=== PATIENT | female | born 1935 | race Caucasian/White ===

== ENCOUNTER 2016-05-06 20:24 | Emergency (ER) | payer MEDICARE, OTHER ==
[~2016-05-06] VITALS: Ht 170.2 cm; Wt 90.5 kg
[~2016-05-06 20:24] MED LIST: ALBU6.7H INH; AMBI10TA; ATEN1TAB75 PO; CALTTAB5; DARV PO; LEVO.1; LORT5TAB PO; MEDR4PAK3 PO; MOXI400T4 PO; PIRO-1 PO; RANI300T PO; TRAM50 PO; [UNRECOGNIZED DRUG - OTHER]
[2016-05-06 20:26] VITALS: BP 139/66; PULSE 61; RESP 20; TEMP 98; O2SAT 96
== END 2016-05-06 22:00 | disposition left against medical advice (07) ==
LOC: NED 20:24
DX: Z53.21 Procedure and treatment not carried out due to patient leaving prior to being seen by health care provider (principal)
CPT/HCPCS: 99281

== ENCOUNTER 2016-05-13 09:13 | Inpatient (IN) | payer MEDICARE ==
[~2016-05-13] VITALS: Ht 167.6 cm; Wt 92.8 kg
[2016-05-13 10:02] VITALS: BP_SYST 144; BP_DIAS 62; BP_DIAS 67; PULSE 49; TEMP 98.1; TEMP 98.4; O2SAT 97
[2016-05-13] MEDS: SODIUM CHLORIDE 0.9% FLUSH 5 ML FLUSH IVF PRN ×2 (10:40→12:12)
[2016-05-13 10:42] LABS: AUTOMATED NEUTROPHIL # 12.8 TH/MM3 (1.8-7.7); BASOPHIL # 0.1 TH/MM3 (0-0.2); BASOPHIL % 0.6 % (0.0-2.0); EOSINOPHIL % 0.2 % (0.0-4.0); HEMATOCRIT 37.1 % (35.0-46.0); LYMPH % 7.2 % (9.0-44.0); LYMPHOCYTE # 1.1 TH/MM3 (1.0-4.8); MEAN CORPUSCULAR HEMOGLOBIN 29.8 PG (27.0-34.0); MEAN CORPUSCULAR HGB CONC 33.9 % (32.0-36.0); PLATELET COUNT 302 TH/MM3 (150-450); RED BLOOD COUNT 4.22 MIL/MM3 (4.00-5.30); WHITE BLOOD COUNT 15.1 TH/MM3 (4.0-11.0)
[2016-05-13 10:45] LABS: HEMO FLAGS AUTO DIFF
[2016-05-13 10:50] LABS: APTT (PATIENT) 25.1 SEC (24.3-30.1)
--- NOTE | 2016-05-13 10:57 | PD ---
HPI Chief Complaint: General Weakness Time Seen by Provider: 09:59 Travel History International Travel<30 days: No Contact w/Intl Traveler<30days: No Traveled to known affect area: No History of Present Illness HPI 81yo F presents to the ED with c/o right shoulder pain s/p fall yesterday afternoon. Pt also states she felt dizzy and fell 2 more times today but did not hit her head. Denies any fever, chest pain, sob, n/v, abdominal pain, focal weakness or numbness. PFSH Past Medical History Arthritis: Yes Anxiety: Yes High Cholesterol: Yes GERD: Yes Hypertension: Yes Musculoskeletal: Yes (CORTISONE TO RIGHT HEEL, 20YEARS FOR HEEL SPUR) Thyroid Disease: Yes ?: Not Menopausal: Yes Past Surgical History Appendectomy: Yes Cholecystectomy: Yes Genitourinary Surgery: Yes (BLADDER SUSPENSION SURGERY) Gynecologic Surgery: Yes (HYSTERECTOMY, AND BREAST REDUCTION) Hysterectomy: Yes Joint Replacement: Yes (BILATERAL KNEE) Other Surgery: Yes (BREAST REDUCTION) Social History Alcohol Use: No Tobacco Use: No Substance Use: No Allergies-Medications (Allergen,Severity, Reaction): Coded Allergies: Penicillin (Verified Allergy, Severe, RASH AND SOB, 05/06/16) Reported Meds & Prescriptions Reported Meds & Active Scripts Active Reported Zolpidem (Zolpidem Tartrate) 1.75 Mg Sub 1.75 Mg SL HS PRN Caltrate 600 (Calcium Carbonate) 1,500 Mg Tab 1 Tab PO DAILY Furosemide 20 Mg Tab 20 Mg PO DAILY Amlodipine (Amlodipine Besylate) 2.5 Mg Tab 2.5 Mg PO DAILY Synthroid (Levothyroxine Sodium) 100 Mcg Tab 100 Mcg PO DAILY Atenolol 100 Mg Tab 100 Mg PO DAILY Review of Systems Except as stated in HPI: all other systems reviewed are Neg Physical Exam Narrative GENERAL: 81yo F not in distress. SKIN: Warm and dry. HEAD: Atraumatic. Normocephalic. EYES: Pupils equal and round. No scleral icterus. No injection or drainage. NECK: Trachea midline. No JVD. CARDIOVASCULAR: Regular rate and rhythm. No murmur appreciated. RESPIRATORY: No accessory muscle use. Clear to auscultation. Breath sounds equal bilaterally. GASTROINTESTINAL: Abdomen soft, non-tender, nondistended. Hepatic and splenic margins not palpable. MUSCULOSKELETAL: RUE: +TTP proximal humerus. Deltoid sensation intact. Radial pulse 2+. NEUROLOGICAL: Awake and alert. No obvious cranial nerve deficits. Motor grossly within normal limits. Normal speech. PSYCHIATRIC: Appropriate mood and affect; insight and judgment normal. Data Data Last Documented VS Vital Signs Date Time Temp Pulse Resp B/P Pulse Ox O2 Delivery O2 Flow Rate FiO2 05/13/16 11:36 100 Nasal Cannula 2 05/13/16 10:02 98.4 49 144/62 05/13/16 10:02 17 Orders Electrocardiogram (05/13/16 10:24) Basic Metabolic Panel (Bmp) (05/13/16 10:24) Complete Blood Count With Diff (05/13/16 10:24) Magnesium (Mg) (05/13/16 10:24) Ckmb (Isoenzyme) Profile (05/13/16 10:24) Troponin I (05/13/16 10:24) Act Partial Throm Time (Ptt) (05/13/16 10:24) Urinalysis - C+S If Indicated (05/13/16 10:24) Chest, Single Ap (05/13/16 10:24) Ecg Monitoring (05/13/16 10:24) Iv Access Insert/Monitor (05/13/16 10:24) Oximetry (05/13/16 10:24) Sodium Chloride 0.9% Flush (Ns Flush) (05/13/16 10:30) Ct Brain W/O Iv Contrast(Rout) (05/13/16 ) Shoulder, Limited(2vws) (05/13/16 ) Elbow, Limited (Ap&Lat) (05/13/16 ) CKMB (05/13/16 10:30) CKMB% (05/13/16 10:30) Cath For Specimen (05/13/16 11:35) Sodium Chlor 0.9% 1000 Ml Inj (Ns 1000 M (05/13/16 11:45) Diet Npo (05/13/16 Lunch) Vital Signs (Adult) VIANCA.Q4H (05/13/16 12:15) Sodium Chlor 0.9% 1000 Ml Inj (Ns 1000 M (05/13/16 13:00) Ondansetron Inj (Zofran Inj) (05/13/16 12:15) Consult Orthopedic (05/13/16 ) Complete Blood Count With Diff (05/14/16 06:00) Basic Metabolic Panel (Bmp) (05/14/16 06:00) Admit Order (Ed Use Only) (05/13/16 12:18) Labs Laboratory Tests Test 05/13/16 05/13/16 10:30 11:55 White Blood Count 15.1 TH/MM3 Red Blood Count 4.22 MIL/MM3 Hemoglobin 12.6 GM/DL Hematocrit 37.1 % Mean Corpuscular Volume 88.0 FL Mean Corpuscular Hemoglobin 29.8 PG Mean Corpuscular Hemoglobin 33.9 % Concent Red Cell Distribution Width 14.0 % Platelet Count 302 TH/MM3 Mean Platelet Volume 7.4 FL Neutrophils (%) (Auto) 85.0 % Lymphocytes (%) (Auto) 7.2 % Monocytes (%) (Auto) 7.0 % Eosinophils (%) (Auto) 0.2 % Basophils (%) (Auto) 0.6 % Neutrophils # (Auto) 12.8 TH/MM3 Lymphocytes # (Auto) 1.1 TH/MM3 Monocytes # (Auto) 1.0 TH/MM3 Eosinophils # (Auto) 0.0 TH/MM3 Basophils # (Auto) 0.1 TH/MM3 CBC Comment AUTO DIFF Differential Comment AUTO DIFF CONFIRMED Platelet Estimate NORMAL Platelet Morphology Comment NORMAL Red Cell Morphology Comment NORMAL Activated Partial 25.1 SEC Thromboplast Time Sodium Level 133 MEQ/L Potassium Level 4.2 MEQ/L Chloride Level 98 MEQ/L Carbon Dioxide Level 26.5 MEQ/L Anion Gap 9 MEQ/L Blood Urea Nitrogen 40 MG/DL Creatinine 2.61 MG/DL Estimat Glomerular Filtration 18 ML/MIN Rate Random Glucose 103 MG/DL Calcium Level 9.0 MG/DL Magnesium Level 2.1 MG/DL Total Creatine Kinase 156 U/L Creatine Kinase MB 1.9 NG/ML Troponin I LESS THAN 0.02 NG/ML Urine Color YELLOW Urine Turbidity CLEAR Urine pH 6.0 Urine Specific [place] 1.018 Urine Protein NEG mg/dL Urine Glucose (UA) NEG mg/dL Urine Ketones NEG mg/dL Urine Occult Blood NEG Urine Nitrite NEG Urine Bilirubin NEG Urine Urobilinogen 2.0 MG/DL Urine Leukocyte Esterase NEG Urine RBC 2 /hpf Urine WBC 1 /hpf Urine Squamous Epithelial 1 /hpf Cells Microscopic Urinalysis Comment CULT NOT INDICATED MDM Medical Decision Making Medical Screen Exam Complete: Yes Emergency Medical Condition: Yes Interpretation(s) EKG: Sinus bradycardia at 45bpm. Normal axis. TWI V3. No ST segment elevation or depression. QTc 451ms. Differential Diagnosis Dehydration vs. UTI vs. Proximal humerus fracture vs. ICH vs. posterior stroke Narrative Course 81yo F with mechanical fall yesterday here with right shoulder pain. Pt also has been feeling dizzy after and fell two more times today. Has been feeling weak. Labs reviewed, leukocytosis at 15.1. H/H stable at 12.6/37.1. BUN/ creatinine elevated at 40/2.61. No prior to compare. Pt likely with PRABHJOT secondary to dehydration. Troponin negative. UA pending. CT brain showed no acute infarct. Discussed with Dr. Franklin and accepted to his service. Xray right shoulder showed comminuted fracture through anatomic neck of proximal right humerus. Xray right elbow negative. Pt placed in sling. Discussed with orthopedic surgeon Dr. Ruggiero and he is aware of patient and will see her today or tomorrow. UA negative. Diagnosis Primary Impression: Acute kidney injury Additional Impression: Right humeral fracture Qualified Code: S42.211A - Closed displaced fracture of surgical neck of right humerus, unspecified fracture morphology, initial encounter Admitting Information Admitting Physician Requests: Admit Alysia Freeman DO May 13, 2016 10:57
[2016-05-13 11:00] LABS: ANION GAP 9 MEQ/L (5-15); BICARBONATE 26.5 MEQ/L (21.0-32.0); BLOOD UREA NITROGEN 40 MG/DL (7-18); CHLORIDE 98 MEQ/L (98-107); GLOMERULAR FILTRATION RATE 18 ML/MIN (>89); MAGNESIUM 2.1 MG/DL (1.5-2.5); POTASSIUM 4.2 MEQ/L (3.5-5.1); SODIUM (NA) 133 MEQ/L (136-145)
[2016-05-13 11:03] LABS: CREATINE KINASE 156 U/L (26-192)
[2016-05-13 11:12] LABS: PLATELET ESTIMATE SMEAR NORMAL (NORMAL); PLATELET MORPHOLOGY NORMAL (NORMAL); SCAN/DIFF AUTO DIFF CONFIRMED
[2016-05-13 11:16] LABS: CKMB 1.9 NG/ML (0.5-3.6)
--- NOTE | 2016-05-13 11:32 | RADRPT ---
EXAM DATE/TIME: 05/13/2016 11:00 [facility] COMPARISON: No previous studies available for comparison. INDICATIONS: Syncope, fall. RADIATION DOSE: 37.12 CTDIvol (mGy) MEDICAL HISTORY: Hypertension. Hypothyroidism. SURGICAL HISTORY: Appendectomy. Cholecystectomy. Hysterectomy. ENCOUNTER: Initial ACUITY: 1 day PAIN SCALE: 3/10 LOCATION: Cranial TECHNIQUE: Multiple contiguous axial images were obtained of the head. Using automated exposure control and adj ustment of the mA and/or kV according to patient size, radiation dose was kept as low as reasonably a chievable to obtain optimal diagnostic quality images. FINDINGS: The ventricles, sulci and cisterns are normal size, shape and position for the patient's age. S cattered old lacunar infarcts are noted within the bilateral basal ganglia. There is ischemic change within the left external capsule. There is no acute infarct, acute hemorrhage, mass effect or extra axial fluid collections. Air fluid levels are noted within the maxillary sinuses and sphenoid sinuse s bilaterally consistent with acute sinusitis. Mucosal thickening is also noted involving ethmoid ai r cells bilaterally. CONCLUSION: 1. No acute infarct, acute hemorrhage, mass effect or extraaxial fluid collections. 2. 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 3. Ischemic changes within the left external capsule. 4. Air fluids within the maxillary sinuses and sphenoid sinuses consistent with acute sinusitis with mucosal thickening of the ethmoid air cells bilaterally also. Alex Hahn MD on May 13, 2016 at 11:07 Board Certified Radiologist. This report was verified electronically.
[2016-05-13 11:36] VITALS: O2SAT 100
[2016-05-13] MEDS ORDERED: SODIUM CHLOR 0.9% 1000 ML INJ 1,000 ML IV ONE (11:45)
--- NOTE | 2016-05-13 11:47 | RADRPT ---
EXAM DATE/TIME: 05/13/2016 11:35 [facility] COMPARISON: No previous studies available for comparison. INDICATIONS : Shortness of breath. MEDICAL HISTORY : None. SURGICAL HISTORY : None. ENCOUNTER: Initial ACUITY: 1 day PAIN SCORE: 0/10 LOCATION: Bilateral chest FINDINGS: A single view of the chest demonstrates the lungs to be symmetrically aerated without evidence of mas s, infiltrate or effusion. The cardiomediastinal contours are unremarkable. There appears to be a fr acture through the proximal right humerus which is incompletely evaluated on this study. Degenerative spurring of the dorsal spine. CONCLUSION: 1. No acute infiltrate. 2. Probable fracture of the proximal right humerus-age indeterminate. Bao Lopez MD on May 13, 2016 at 11:44 Board Certified Radiologist. This report was verified electronically.
--- NOTE | 2016-05-13 11:49 | RADRPT ---
EXAM DATE/TIME: 05/13/2016 11:38 [facility] COMPARISON: No previous studies available for comparison. INDICATIONS : Right elbow pain, fall. MEDICAL HISTORY : None. SURGICAL HISTORY : None. ENCOUNTER: Initial ACUITY: 1 day PAIN SCORE: 4/10 LOCATION: Right elbow FINDINGS: Two view examination of the right elbow demonstrates no soft tissue swelling, joint effusion, fractur e or dislocation. Bony mineralization is normal. CONCLUSION: No fracture identified on the 2 view series provided. Bao Lopez MD on May 13, 2016 at 11:46 Board Certified Radiologist. This report was verified electronically.
--- NOTE | 2016-05-13 11:51 | RADRPT ---
EXAM DATE/TIME: 05/13/2016 11:24 [facility] COMPARISON: No previous studies available for comparison. INDICATIONS : Right shoulder pain, fall. MEDICAL HISTORY : None. SURGICAL HISTORY : None. ENCOUNTER: Initial ACUITY: 1 day PAIN SCORE: 10/10 LOCATION: Right proximal humerus FINDINGS: Two view examination of the right shoulder demonstrates a comminuted fracture through the surgical ne ck of the proximal right humerus with approximately 8 -12 mm of anteromedial displacement of the dist al fragment. CONCLUSION: Comminuted fracture through the anatomic neck of the proximal right humerus. Bao Lopez MD on May 13, 2016 at 11:48 Board Certified Radiologist. This report was verified electronically.
[2016-05-13] MEDS ORDERED: CALTTAB5 PO (12:20)
[2016-05-13] MEDS ORDERED: LEVO.1 PO (12:20)
[2016-05-13] MEDS ORDERED: METO25TA3 PO (12:20)
[2016-05-13] MEDS ORDERED: ATEN100T PO (12:20)
[2016-05-13] MEDS ORDERED: FURO20TA PO (12:20)
[2016-05-13] MEDS ORDERED: ZOLP1SUB2 SL (12:20)
[2016-05-13] MEDS ORDERED: AMLO2.5T PO (12:20)
[2016-05-13 12:38] LABS: BLOOD, URINE NEG (NEG); COMMENT (UR) CULT NOT INDICATED; CULTURE IF INDICATED CULT NOT INDICATED; GLUCOSE,URINE NEG (NEG); KETONE, URINE NEG (NEG); NITRITE,URINE NEG (NEG); SQUAMOUS EPITHELIAL CELL URINE 1 /hpf (0-5); URINE COLOR YELLOW (YELLW/STRAW)
[2016-05-13 12:39] VITALS: BP_SYST 134; BP_SYST 84; BP_DIAS 84; PULSE 49; O2SAT 100
--- NOTE | 2016-05-13 12:47 | HHI.HP ---
[facility] Primary Care Physician Non-Staff Admission Diagnosis Right proximal humerus fx, PRABHJOT, dehydration Diagnoses: (1) Right humeral fracture Diagnosis: Principal (2) Fall Diagnosis: Principal (3) Acute kidney injury Diagnosis: Principal Chief Complaint: pain to the right shoulder Travel History International Travel<30 Days: No Contact w/Intl Traveler <30 Da: No Traveled to Known Affected Are: No History of Present Illness patient is a 81 y/o female with history of hypertension who presented to ER with right shoulder pain after a fall last night. she says that while she was on a cruise she started to have flu-like symptoms for which she was given antibiotics and cough medicine. she says that she hasn't been eating or drinking as much recently and she ' feels dehydrated'. she says that she's been dizzy over the past couple of days. she fell three times since yesterday. she denies any chest pain, sob. pain to the right shoulder was moderate in intensity. Review of Systems Constitutional: COMPLAINS OF: Dizziness, DENIES: Fever, Weight loss, Chills, Night Sweats Eyes: DENIES: Blurred vision, Diplopia, Vision loss, Double Vision Ears, nose, mouth, throat: DENIES: Tinnitus, Vertigo, Throat pain, Epistaxis Respiratory: DENIES: Apneas, Cough, Snoring, Wheezing, Hemoptysis, Sputum production, Shortness of breath Cardiovascular: DENIES: Chest pain, Palpitations, Syncope, Dyspnea on Exertion , PND, Lower Extremity Edema, Orthopnea, Claudication Gastrointestinal: DENIES: Abdominal pain, Black stools, Bloody stools, Constipation, Diarrhea, Nausea, Vomiting, Difficulty Swallowing, Anorexia Genitourinary: DENIES: Urinary frequency, Urgency, Hematuria, Dysuria Musculoskeletal: COMPLAINS OF: Joint pain (right shoulder), DENIES: Muscle aches, Stiffness, Joint Swelling Integumentary: DENIES: Rash Neurologic: DENIES: Abnormal gait, Headache, Localized weakness, Paresthesias, Seizures, Speech Problems, Tremor, Poor Balance Psychiatric: DENIES: Anxiety, Confusion, Mood changes, Depression, Hallucinations, Agitation, Suicidal Ideation, Homicidal Ideation, Delusions Past Family Social History Past Medical History hypertension Past Surgical History knee replacement Reported Medications Medrol Dosepak (Methylprednisolone) 4 Mg Tom 4 Mg PO DIRECTED TAKE DIRECTED Avelox (Moxifloxacin HCl) 400 Mg Tab 400 Mg PO DAILY Proventil Hfa (Albuterol Sulfate) 6.7 Gm Aero 2 Puff INH Q4 Lortab 5/500 (Acetaminophen/Hydrocodone Bitart) 5 Mg/500 Mg Tab 1 Tab PO Q4HPRN FOR PAIN Ultram (Tramadol HCl) 50 Mg Tab 1 Tab PO Q6HPRN FOR PAIN Reported Darvocet-N 100 (Propoxyphene Napsylate/Acetam) Tab 1 Tab PO Q6HPRN FOR PAIN Zantac (Ranitidine HCl) 300 Mg Tab 300 Mg PO HS Feldene (Piroxicam) 20 Mg Cap 20 Mg PO DAILY Tenormin (Atenolol) 100 Mg Tab 100 Mg PO DAILY Caltrate 600 (Calcium Carbonate) Tab 600 Mg DAILY Ambien (Zolpidem Tartrate) 10 Mg Tab 10 Mg HS Synthroid (Levothyroxine Sodium) 100 Mcg Tab 100 DAILY Allergies: Coded Allergies: Penicillin (Verified Allergy, Severe, RASH AND SOB, 05/06/16) Active Ordered Medications Current Medications IV Flush 2 ml 2 ml UNSCH PRN IVF FLUSH AFTER USING IV ACCESS Last administered on 05/13/16 12:12; Start 05/13/16 at 10:30 Sodium Chloride 1,000 ml @ 999 mls/hr BOLUS ONCE IV Last administered on 12:11; Start 05/13/16 at 11:45; Stop 05/13/16 at 12:45 Sodium Chloride (NS 1000 ml Inj) 1,000 ml @ 75 mls/hr [id number] IV ; Start at 13:00 Ondansetron HCl (Zofran Inj) 4 mg Q8H PRN IV PUSH NAUSEA; Start 05/13/16 at 12: 15 Family History not relevant to this admission. Social History no smoking or drinking. Physical Exam Vital Signs Vital Signs Date Time Temp Pulse Resp B/P Pulse Ox O2 Delivery O2 Flow Rate FiO2 05/13/16 11:36 100 Nasal Cannula 2 05/13/16 10:02 98.4 49 144/62 97 Nasal Cannula 2 05/13/16 10:02 17 95 Nasal Cannula 2 05/13/16 10:02 98.1 49 144/67 Physical Exam GENERAL: This is a well-nourished, well-developed patient, in no apparent distress. SKIN: No rashes, ecchymoses or lesions. Cool and dry. HEAD: oral mucosa looks dry EYES: Pupils equal round and reactive. Extraocular motions intact. No scleral icterus. No injection or drainage. ENT: Nose without bleeding, purulent drainage or septal hematoma. Throat without erythema, tonsillar hypertrophy or exudate. Uvula midline. Airway patent. NECK: Trachea midline. No JVD or lymphadenopathy. Supple, nontender, no meningeal signs. CARDIOVASCULAR: Regular rate and rhythm without murmurs, gallops, or rubs. RESPIRATORY: Clear to auscultation. Breath sounds equal bilaterally. No wheezes , rales, or rhonchi. GASTROINTESTINAL: Abdomen soft, non-tender, nondistended. No hepato-splenomegaly , or palpable masses. No guarding. MUSCULOSKELETAL:right arm is swollen and tender NEUROLOGICAL: Awake and alert. Cranial nerves II through XII intact. Motor and sensory grossly within normal limits. Five out of 5 muscle strength in all muscle groups. Normal speech. Laboratory Laboratory Tests Test 05/13/16 10:30 White Blood Count 15.1 Red Blood Count 4.22 Hemoglobin 12.6 Hematocrit 37.1 Mean Corpuscular Volume 88.0 Mean Corpuscular Hemoglobin 29.8 Mean Corpuscular Hemoglobin 33.9 Concent Red Cell Distribution Width 14.0 Platelet Count 302 Mean Platelet Volume 7.4 Neutrophils (%) (Auto) 85.0 Lymphocytes (%) (Auto) 7.2 Monocytes (%) (Auto) 7.0 Eosinophils (%) (Auto) 0.2 Basophils (%) (Auto) 0.6 Neutrophils # (Auto) 12.8 Lymphocytes # (Auto) 1.1 Monocytes # (Auto) 1.0 Eosinophils # (Auto) 0.0 Basophils # (Auto) 0.1 CBC Comment AUTO DIFF Differential Comment AUTO DIFF CONFIRMED Platelet Estimate NORMAL Platelet Morphology Comment NORMAL Red Cell Morphology Comment NORMAL Activated Partial 25.1 Thromboplast Time Sodium Level 133 Potassium Level 4.2 Chloride Level 98 Carbon Dioxide Level 26.5 Anion Gap 9 Blood Urea Nitrogen 40 Creatinine 2.61 Estimat Glomerular Filtration 18 Rate Random Glucose 103 Calcium Level 9.0 Magnesium Level 2.1 Total Creatine Kinase 156 Creatine Kinase MB 1.9 Troponin I LESS THAN 0.02 Result Diagram: 05/13/16 1030 05/13/16 1030 Imaging Last Impressions Chest X-Ray 05/13/16 1024 Signed Impressions: Service Date/Time: Friday, May 13, 2016 11:35 - CONCLUSION: 1. No acute infiltrate. 2. Probable fracture of the proximal right humerus-age indeterminate. Bao Lopez MD Shoulder X-Ray 05/13/16 0000 Signed Impressions: Service Date/Time: Friday, May 13, 2016 11:24 - CONCLUSION: Comminuted fracture through the anatomic neck of the proximal right humerus. Bao Lopez MD Elbow X-Ray 05/13/16 0000 Signed Impressions: Service Date/Time: Friday, May 13, 2016 11:38 - CONCLUSION: No fracture identified on the 2 view series provided. Bao Lopez MD Assessment and Plan Assessment and Plan A/P - right proximal humerus fracture after a fall continue with pain control- consult ortho. -hypertension; hold BP meds for now- will monitor -acute kidney injury/ dehydration; start IV fluid- monitor renal function- BMP in am -DVT prophylaxis with SCD's Discussed Condition With ER physician and the patient. Physician Certification 2 Midnight Certification Type: Admission for Inpatient Services Order for Inpatient Services The services are ordered in accordance with Medicare regulations or non- Medicare payer requirements, as applicable. In the case of services not specified as inpatient-only, they are appropriately provided as inpatient services in accordance with the 2-midnight benchmark. Estimated LOS (days): 2 days is the estimated time the patient will need to remain in the hospital, assuming treatment plan goals are met and no additional complications. Post-Hospital Plan: Not yet determined Problem Qualifiers (1) Right humeral fracture: Bandar Hubbard MD May 13, 2016 12:47
[2016-05-13] MEDS: HYDROmorphone HCL PF 1 MG/ML VIAL IV PUSH PRN ×2 (13:00→19:47)
[2016-05-13] MEDS: ONDANSETRON HCL 4 MG/2 ML VIAL IV PUSH PRN ×2 (13:01→19:47)
[2016-05-13] MEDS: SODIUM CHLOR 0.9% 1000 ML INJ 1,000 ML IV SCH (13:29)
--- NOTE | 2016-05-13 14:08 | RADRPT ---
EXAM DATE/TIME: 05/13/2016 13:00 [facility] COMPARISON: No previous studies available for comparison. INDICATIONS : Weakness. MEDICAL HISTORY : Hypercholesterolemia. Hypertension. Gastroesophageal reflux disease. Thyuroid disease. Arthritis. SURGICAL HISTORY : Appendectomy. Cholecystectomy. Hysterectomy. Breast reduction. Bladder suspension. Bilateral knee emily polly. ENCOUNTER: Initial ACUITY: 1 day PAIN SCORE: 0/10 LOCATION: Bilateral neck PEAK SYSTOLIC VELOCITIES (cm/sec): ICA/CCA RATIO: Right: 0.8 Left: 1.2 ICA: Right: 80 Left: 85 CCA: Right: 97 Left: 71 ECA: Right: 71 Left: 55 VERTEBRAL: Right: 58 antegrade Left: 62 antegrade Elevated flow velocities and ICA/CCA ratios have been found to correlate with increased degrees of vessel stenosis, calculated as percentage of diameter relative to a normal segment of distal ICA/CCA FINDINGS: RIGHT CAROTID: No significant stenosis is visualized. Minimal plaque is present. The right carotid artery is tortuou s. The waveforms are within normal limits. LEFT CAROTID: No significant stenosis is visualized. Minimal plaque is present. The waveforms are within normal jacobo its. VERTEBRAL ARTERIES: Antegrade flow is seen in both vertebral arteries. MISCELLANEOUS: None. CONCLUSION: Minimal plaque with no evidence of stenosis. William Mcallister MD on May 13, 2016 at 14:05 Board Certified Radiologist. This report was verified electronically.
[2016-05-13 15:19] VITALS: BP 129/61
[2016-05-13 19:23] VITALS: BP 146/68; PULSE 50; RESP 18; O2SAT 93; O2SAT 99
[2016-05-14] VITALS (7 sets, daily range): BP systolic 109–138; BP diastolic 53–85; PULSE 51–60; RESP 18; O2SAT 96–100
[2016-05-14] MEDS: SODIUM CHLOR 0.9% 1000 ML INJ 1,000 ML IV SCH ×3 (00:04→21:03)
[2016-05-14] MEDS: HYDROmorphone HCL PF 1 MG/ML VIAL IV PUSH PRN ×2 (00:04→04:31)
[2016-05-14] MEDS: ONDANSETRON HCL 4 MG/2 ML VIAL IV PUSH PRN (04:31)
[2016-05-14 04:37] LABS: BASOPHIL % 0.4 % (0.0-2.0); EOSINOPHIL # 0.1 TH/MM3 (0-0.4); HEMATOCRIT 33.8 % (35.0-46.0); HEMO FLAGS DIFF FINAL; LYMPH % 15.9 % (9.0-44.0); LYMPHOCYTE # 1.5 TH/MM3 (1.0-4.8); MEAN CELL VOLUME 90.6 FL (80.0-100.0); MEAN CORPUSCULAR HEMOGLOBIN 30.7 PG (27.0-34.0); MEAN CORPUSCULAR HGB CONC 33.8 % (32.0-36.0); MONO % 9.7 % (0.0-8.0); PLATELET COUNT 240 TH/MM3 (150-450); RED BLOOD COUNT 3.73 MIL/MM3 (4.00-5.30); RED CELL DISTRIBUTION WIDTH 14.3 % (11.6-17.2); WHITE BLOOD COUNT 9.6 TH/MM3 (4.0-11.0)
[2016-05-14] MEDS: LEVOTHYROXINE SODIUM 100 MCG TAB PO SCH (04:51)
[2016-05-14 05:00] LABS: BICARBONATE 23.7 MEQ/L (21.0-32.0); POTASSIUM 4.7 MEQ/L (3.5-5.1)
--- NOTE | 2016-05-14 07:43 | PD.ORT.PN ---
Subjective Subjective Remarks Visiting from [place]. Fell in hotel room and hit a table with shoulder. Had significant pain and came to emergency room for evaluation. Right proximal humerus fracture is diagnosed and confirmed with x-rays. No other complaints Objective Vitals Vital Signs Date Time Temp Pulse Resp B/P Pulse Ox O2 Delivery O2 Flow Rate FiO2 05/14/16 06:25 18 05/14/16 05:00 60 18 127/60 99 Room Air 05/14/16 04:19 51 18 99 05/14/16 02:21 51 18 116/58 99 Nasal Cannula 2 05/13/16 19:23 50 18 146/68 99 Nasal Cannula 2 05/13/16 19:02 100 05/13/16 15:19 129/61 05/13/16 12:39 49 134/84 100 Nasal Cannula 2 05/13/16 11:36 100 Nasal Cannula 2 05/13/16 10:02 98.4 49 144/62 97 Nasal Cannula 2 05/13/16 10:02 17 95 Nasal Cannula 2 05/13/16 10:02 98.1 49 144/67 Result Diagram: 05/14/16 0405 05/14/16 0405 Imaging Last 24 hours Impressions Chest X-Ray 05/13/16 1024 Signed Impressions: Service Date/Time: Friday, May 13, 2016 11:35 - CONCLUSION: 1. No acute infiltrate. 2. Probable fracture of the proximal right humerus-age indeterminate. Bao Lopez MD Objective Remarks Right upper extremity: Pain to palpation of proximal humerus. No pain to palpation of elbow. Distally she has intact sensation with good capillary refills. She is able fully extend and flex all fingers. Left upper extremity: Full range of motion neurovascularly intact Bilateral lower extremities: Full range of motion neurovascularly intact Assessment & Plan Assessment and Plan Right proximal humerus fracture Due to alignment of proximal humerus fracture is recommended that we treat this nonoperatively. She will remain in the sling and swath which will be adjusted this morning by [employer]. No range of motion and no movement of shoulder. Also nonweightbearing right upper extremity. If cleared by physical therapy she may be discharged and follow-up in outpatient setting. We will have repeat x-rays in 2 weeks to evaluate continued alignment of proximal humerus. If the fracture displaces surgery may be necessary to fixate and realign fracture. Orthopedically cleared for discharge Patient also seen and examined by Dr. Britt consult to be dictated NOAH ROLLE PA-C May 14, 2016 07:43
--- NOTE | 2016-05-14 08:46 | MB ---
cc: [facility] DATE OF ADMISSION 05/13/2016 DATE OF CONSULTATION 05/14/2016 REASON FOR CONSULTATION Minimally displaced right proximal humerus fracture. CONSULTING PHYSICIAN Dr. Hubbard. HISTORY Meka is a pleasant 81-year-old female who presented to the emergency room after having a fall. She had been on a cruise when she was starting to feel some flu-like symptoms. She was taking antibiotics and cough medicine. She had not been eating or drinking much. She had been feeling some dizziness. She had three falls yesterday. She landed on her right arm at her last fall resulting in right shoulder pain. The pain is worse with movement and is improved with rest. She is currently awake and alert in the emergency department. She lives in [place]. She is just here for vacation. PAST MEDICAL HISTORY ILLNESSES Hypertension. SURGERIES Knee replacement. MEDICATIONS 1. Medrol Dosepak. 2. Avelox. 3. Proventil. 4. Lortab. 5. Ultram. 6. Zantac. 7. Feldene. 8. Tenormin. 9. Caltrate. 10. Ambien. 11. Synthroid. ALLERGIES PENICILLIN. FAMILY HISTORY Noncontributory. She denies any familial medical problems. SOCIAL HISTORY The patient lives in [place]. She denies alcohol, tobacco or drug use. REVIEW OF SYSTEMS The patient denies headache, visual changes, neck pain, chest pain, shortness of breath, abdominal pain, nausea, vomiting or recent weight loss. She has had some recent upper respiratory infection. She has had some recent episodes of dizziness as well. She complains of right shoulder pain. PHYSICAL EXAMINATION GENERAL: The patient is a well-developed, well-nourished 81-year-old female in no acute distress. She is awake and alert. She is alert and oriented x 3. VITAL SIGNS: Temperature 98.1, pulse 60, respirations 18, blood pressure 127/60, O2 sat 99% on 2 liters by nasal cannula. HEAD: The patient is normocephalic. EYES: Pupils are equal. NECK: Soft, nontender. Trachea is midline. ABDOMEN: Soft, nontender, nondistended. EXTREMITIES: Examination of the right arm reveals diffuse tenderness around her shoulder. She has pain with any shoulder motion. She has minimal tenderness around her elbow, wrist or hand. She has intact sensation of all fingers. She has good capillary refill of all fingers. Radial pulses palpable. Examination of the left arm reveals no pain with shoulder, elbow or wrist motion. She has intact sensation in all fingers. She has good capillary refill in all fingers. Skin is intact. Radial pulses palpable. Examination of the bilateral lower extremities reveals no pain with hip, knee or ankle motion. Skin is intact. Dorsalis pedis pulses palpable. Sensation is intact to both feet. X-RAYS X-rays of the right shoulder were reviewed. X-rays reveal a mildly displaced right proximal humerus fracture. The glenohumeral joint is reduced. There is some impaction along the fracture site. IMPRESSION Mildly displaced right proximal humerus fracture. PLAN The treatment options were discussed with the patient. At this point I would recommend nonoperative treatment. The patient will need to remain in a sling and swath. She is not to use her right arm for any lifting or other activities. She understands that if the fracture moves, surgery may become necessary. All questions were answered. She will need to follow up with an orthopedic surgeon at home in [place] in approximately two weeks. A mid-level provider in my office (nurse practitioner or physician physician assistant psychiatry) may see this patient on follow-up visits and continue to implement the objectives of this plan including: Starting or adjusting medications, injections , cast application, orthotics, brace application, physical therapy, radiological studies (including x-ray, MRI, CT, ultrasound, bone scan), vascular studies, neurologic studies, specialist consultation, and proceeding with surgical management, as appropriate. MD KONRAD Dave/ЮЛИЯ /8:09 AM /8:35 AM KENDALL
--- NOTE | 2016-05-14 12:47 | HHI.PR ---
Subjective Remarks in no acute distress. pain is fairly controlled. was seen with PT at the bedside. d/w the RN. Objective Vitals Vital Signs Date Time Temp Pulse Resp B/P Pulse Ox O2 Delivery O2 Flow Rate FiO2 05/14/16 09:41 55 18 110/53 96 Nasal Cannula 2 05/14/16 06:25 18 05/14/16 05:00 60 18 127/60 99 Room Air 05/14/16 04:19 51 18 99 05/14/16 02:21 51 18 116/58 99 Nasal Cannula 2 05/13/16 19:23 50 18 146/68 99 Nasal Cannula 2 05/13/16 19:02 100 05/13/16 15:19 129/61 Result Diagram: 05/14/16 0405 05/14/16 0405 Imaging Last Impressions Chest X-Ray 05/13/16 1024 Signed Impressions: Service Date/Time: Friday, May 13, 2016 11:35 - CONCLUSION: 1. No acute infiltrate. 2. Probable fracture of the proximal right humerus-age indeterminate. Bao Lopez MD Shoulder X-Ray 05/13/16 0000 Signed Impressions: Service Date/Time: Friday, May 13, 2016 11:24 - CONCLUSION: Comminuted fracture through the anatomic neck of the proximal right humerus. Bao Lopez MD Head CT 05/13/16 0000 Signed Impressions: Service Date/Time: Friday, May 13, 2016 11:00 - CONCLUSION: 1. No acute infarct, acute hemorrhage, mass effect or extraaxial fluid collections. 2. 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 3. Ischemic changes within the left external capsule. 4. Air fluids within the maxillary sinuses and sphenoid sinuses consistent with acute sinusitis with mucosal thickening of the ethmoid air cells bilaterally also. Alex Hahn MD Elbow X-Ray 05/13/16 0000 Signed Impressions: Service Date/Time: Friday, May 13, 2016 11:38 - CONCLUSION: No fracture identified on the 2 view series provided. Bao Lopez MD Carotid Artery Ultrasound 05/13/16 0000 Signed Impressions: Service Date/Time: Friday, May 13, 2016 13:00 - CONCLUSION: Minimal plaque with no evidence of stenosis. William Mcallister MD Objective Remarks GENERAL: This is a well-nourished, well-developed patient, in no apparent distress. CARDIOVASCULAR: Regular rate and regular rhythm without murmurs, gallops, or rubs. RESPIRATORY: Clear to auscultation. Breath sounds equal bilaterally. No wheezes , rales, or rhonchi. GASTROINTESTINAL: Abdomen soft, non-tender, nondistended. Normal, active bowel sounds MUSCULOSKELETAL: right shoulder in sling. NEURO: Alert & Oriented x4 to person, place, time, situation. Moves all ext x4 Procedures none Medications and IVs Current Medications IV Flush 2 ml 2 ml UNSCH PRN IVF FLUSH AFTER USING IV ACCESS Last administered on 05/13/16 12:12; Start 05/13/16 at 10:30 Sodium Chloride 1,000 ml @ 999 mls/hr BOLUS ONCE IV Last administered on 12:11; Start 05/13/16 at 11:45; Stop 05/13/16 at 12:45; Status DC Sodium Chloride (NS 1000 ml Inj) 1,000 ml @ 100 mls/hr Q10H IV Last administered on 05/14/16 00:04; Start 05/13/16 at 13:00 Ondansetron HCl (Zofran Inj) 4 mg Q8H PRN IV PUSH NAUSEA Last administered on 04:31; Start 05/13/16 at 12:15 Hydromorphone HCl (Dilaudid Pf Inj) 0.5 mg Q4H PRN IV PUSH PAIN 1-10 Last administered on 05/14/16 04:31; Start 05/13/16 at 12:45 Levothyroxine Sodium (Synthroid) 100 mcg DAILY@06 PO Last administered on 04:51; Start 05/14/16 at 06:00 A/P Assessment and Plan A/P - right proximal humerus fracture after a fall continue with pain control- consulted ortho who recommended non-op treatment with f/u as outpatient. NWB right upper extremity. -hypertension;BP fairly controlled- hold BP meds for now- will monitor -acute kidney injury/ dehydration; improving- continue IV fluid. -DVT prophylaxis with subq heparin Discharge Planning d/w PT; patient needs rehab. will consult case management to assist. Bandar Hubbard MD May 14, 2016 12:47
[2016-05-14] MEDS ORDERED: NORC5TAB PO (12:50)
[2016-05-14] MEDS ORDERED: ATEN25TA PO (12:50)
[2016-05-14] MEDS: ACETAMINOPHEN/HYDROcodone 325 MG/5 MG TAB PO PRN ×2 (15:23→21:21)
[2016-05-14] MEDS ORDERED: SENNOSIDES 8.6 MG TAB PO PRN (17:15)
[2016-05-14] MEDS: HEPARIN SODIUM - SQ 10,000 UNITS/ML VIAL SQ SCH (21:00)
--- NOTE | 2016-05-14 23:01 | EKG ---
Date Performed: 05/13/2016 Time Performed: 12:02:49 PTAGE: 81 years EKG: SINUS BRADYCARDIA NONSPECIFIC T-WAVE ABNORMALITY BORDERLINE ECG INTERPRETATION BASED ON Mat PEREZAULT AGE OF 42 YEARS PREVIOUS TRACING : 05/13/2016 10.57 DOCTOR: Jamie Bruce Interpretating Date/Time 05/14/2016 22:59:50
[2016-05-15] VITALS: BP 100/58; PULSE 54; RESP 20; TEMP 98; O2SAT 99
[2016-05-15 04:00] VITALS: BP 117/63; PULSE 60; RESP 20; TEMP 97.1; O2SAT 99
[2016-05-15] MEDS: LEVOTHYROXINE SODIUM 100 MCG TAB PO SCH (04:28)
[2016-05-15] MEDS: ACETAMINOPHEN/HYDROcodone 325 MG/5 MG TAB PO PRN ×4 (04:29→20:07)
--- NOTE | 2016-05-15 06:43 | PD.ORT.PN ---
Subjective Subjective Remarks s/p right shoulder injury reports pain. states was out of bed for a couple steps but hardly at all yesterday. from [place]. Objective Vitals Vital Signs Date Time Temp Pulse Resp B/P Pulse Ox O2 Delivery O2 Flow Rate FiO2 05/15/16 04:00 97.1 60 20 117/63 99 05/15/16 00:00 98.0 54 20 100/58 99 05/14/16 20:10 52 18 109/56 96 Nasal Cannula 2 05/14/16 17:15 54 18 134/85 100 Room Air 05/14/16 12:48 54 18 138/63 96 Nasal Cannula 2 05/14/16 09:41 55 18 110/53 96 Nasal Cannula 2 I/O 05/14/16 05/14/16 05/14/16 05/15/16 05/15/16 05/15/16 07:00 15:00 23:00 07:00 15:00 23:00 Intake Total 220 ml Balance 220 ml Intake Oral 220 ml # Voids 2 # Bowel Movements 0 Result Diagram: 05/14/16 0405 05/14/16 0405 Imaging Last 24 hours Impressions Chest X-Ray 05/13/16 1024 Signed Impressions: Service Date/Time: Friday, May 13, 2016 11:35 - CONCLUSION: 1. No acute infiltrate. 2. Probable fracture of the proximal right humerus-age indeterminate. Bao Lopez MD Objective Remarks RUE: pain to touch of proximal humerus. +sling/swathe. NVI Assessment & Plan Assessment and Plan 1) Right proximal humerus fracture - nonop -NWB -maintain sling/swathe at all times -CM to help arrange transportation back home to [place] -out of bed with therapy f/u outpatient at home with orthopedics in 10 days Indio Barahona May 15, 2016 06:42
[2016-05-15 07:39] LABS: BICARBONATE 26.8 MEQ/L (21.0-32.0); POTASSIUM 4.5 MEQ/L (3.5-5.1)
[2016-05-15 08:00] VITALS: BP 157/70; PULSE 50; RESP 18; TEMP 97.5; O2SAT 99
[2016-05-15] MEDS: HEPARIN SODIUM - SQ 10,000 UNITS/ML VIAL SQ SCH ×2 (09:32→20:07)
[2016-05-15] MEDS: SODIUM CHLOR 0.9% 1000 ML INJ 1,000 ML IV SCH (10:23)
[2016-05-15 12:00] VITALS: BP 113/61; PULSE 52; RESP 18; TEMP 98.5; O2SAT 98
--- NOTE | 2016-05-15 13:36 | HHI.PR ---
Subjective Remarks resting comfortably with no distress. pain is controlled. complaining of constipation. d/w the RN. Objective Vitals Vital Signs Date Time Temp Pulse Resp B/P Pulse Ox O2 Delivery O2 Flow Rate FiO2 05/15/16 10:33 16 05/15/16 08:00 97.5 50 18 157/70 99 05/15/16 04:00 97.1 60 20 117/63 99 05/15/16 00:00 98.0 54 20 100/58 99 05/14/16 20:10 52 18 109/56 96 Nasal Cannula 2 05/14/16 17:15 54 18 134/85 100 Room Air I/O 05/14/16 05/14/16 05/14/16 05/15/16 05/15/16 05/15/16 07:00 15:00 23:00 07:00 15:00 23:00 Intake Total 220 ml Balance 220 ml Intake Oral 220 ml # Voids 2 # Bowel Movements 0 Result Diagram: 05/14/16 0405 05/15/16 0624 Imaging Last Impressions Chest X-Ray 05/13/16 1024 Signed Impressions: Service Date/Time: Friday, May 13, 2016 11:35 - CONCLUSION: 1. No acute infiltrate. 2. Probable fracture of the proximal right humerus-age indeterminate. Bao Lopez MD Shoulder X-Ray 05/13/16 0000 Signed Impressions: Service Date/Time: Friday, May 13, 2016 11:24 - CONCLUSION: Comminuted fracture through the anatomic neck of the proximal right humerus. Bao Lopez MD Head CT 05/13/16 0000 Signed Impressions: Service Date/Time: Friday, May 13, 2016 11:00 - CONCLUSION: 1. No acute infarct, acute hemorrhage, mass effect or extraaxial fluid collections. 2. 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 3. Ischemic changes within the left external capsule. 4. Air fluids within the maxillary sinuses and sphenoid sinuses consistent with acute sinusitis with mucosal thickening of the ethmoid air cells bilaterally also. Alex Hahn MD Elbow X-Ray 05/13/16 0000 Signed Impressions: Service Date/Time: Friday, May 13, 2016 11:38 - CONCLUSION: No fracture identified on the 2 view series provided. Bao Lopez MD Carotid Artery Ultrasound 05/13/16 0000 Signed Impressions: Service Date/Time: Friday, May 13, 2016 13:00 - CONCLUSION: Minimal plaque with no evidence of stenosis. William Mcallister MD Objective Remarks GENERAL: This is a well-nourished, well-developed patient, in no apparent distress. CARDIOVASCULAR: Regular rate and regular rhythm without murmurs, gallops, or rubs. RESPIRATORY: Clear to auscultation. Breath sounds equal bilaterally. No wheezes , rales, or rhonchi. GASTROINTESTINAL: Abdomen soft, non-tender, nondistended. Normal, active bowel sounds MUSCULOSKELETAL: right shoulder in sling. NEURO: Alert & Oriented x4 to person, place, time, situation. Moves all ext x4 Procedures none Medications and IVs Current Medications IV Flush 2 ml 2 ml UNSCH PRN IVF FLUSH AFTER USING IV ACCESS Last administered on 05/13/16 12:12; Start 05/13/16 at 10:30 Sodium Chloride 1,000 ml @ 999 mls/hr BOLUS ONCE IV Last administered on 12:11; Start 05/13/16 at 11:45; Stop 05/13/16 at 12:45; Status DC Sodium Chloride (NS 1000 ml Inj) 1,000 ml @ 75 mls/hr [id number] IV Last administered on 05/14/16 21:03; Start 05/13/16 at 13:00 Ondansetron HCl (Zofran Inj) 4 mg Q8H PRN IV PUSH NAUSEA Last administered on 04:31; Start 05/13/16 at 12:15 Hydromorphone HCl (Dilaudid Pf Inj) 0.5 mg Q4H PRN IV PUSH BREAKTHROUGH PAIN Last administered on 05/14/16 04:31; Start 05/13/16 at 12:45 Levothyroxine Sodium (Synthroid) 100 mcg DAILY@06 PO Last administered on 04:28; Start 05/14/16 at 06:00 Heparin Sodium (Porcine) (Heparin Inj) 5,000 units Q12HR SQ Last administered on 05/15/16 09:32; Start 05/14/16 at 21:00 Acetaminophen/ Hydrocodone Bitart ([place] 5-325 Mg) 1 tab Q4H PRN PO PAIN < 5; Start 05/14/16 at 13:00 Acetaminophen/ Hydrocodone Bitart ([place] 5-325 Mg) 2 tab Q4H PRN PO PAIN >5 Last administered on 05/15/16 09:33; Start 05/14/16 at 13:00 Sennosides (Senokot) 8.6 mg BID PRN PO CONSTIPATION Last administered on 09:30; Start 05/14/16 at 17:15 A/P Assessment and Plan A/P - right proximal humerus fracture after a fall continue with pain control- consulted ortho who recommended non-op treatment with f/u as outpatient. NWB right upper extremity. -hypertension;BP fairly controlled- hold BP meds for now- will monitor -acute kidney injury/ dehydration; improved after IV hydration. -DVT prophylaxis with subq heparin Discharge Planning d/w PT; patient needs rehab. d/w case management and dc planning in progress. Bandar Hubbard MD May 15, 2016 13:36
[2016-05-15] MEDS ORDERED: MAGNESIUM HYDROXIDE SUSP 30 ML CUP PO PRN (13:45)
[2016-05-15 16:15] VITALS: BP 143/69; PULSE 48; RESP 16; TEMP 98.4; O2SAT 98
[2016-05-15 19:45] VITALS: BP 125/63; PULSE 56; RESP 16; TEMP 98.6; O2SAT 100
[2016-05-15] MEDS: SODIUM CHLORIDE 0.9% FLUSH 5 ML FLUSH IVF PRN (20:08)
[2016-05-15] MEDS: HYDROmorphone HCL PF 1 MG/ML VIAL IV PUSH PRN (22:17)
[2016-05-16] VITALS: BP 123/62; PULSE 57; RESP 16; TEMP 97.4; O2SAT 96
[2016-05-16 04:00] VITALS: BP 132/65; PULSE 56; RESP 16; TEMP 97.4; O2SAT 97
[2016-05-16] MEDS: ACETAMINOPHEN/HYDROcodone 325 MG/5 MG TAB PO PRN ×3 (06:30→20:56)
[2016-05-16] MEDS: LEVOTHYROXINE SODIUM 100 MCG TAB PO SCH (06:30)
--- NOTE | 2016-05-16 07:28 | PD.ORT.PN ---
Subjective Subjective Remarks Pain controlled. Arranging for transport back home on Thursday or Thursday Objective Vitals Vital Signs Date Time Temp Pulse Resp B/P Pulse Ox O2 Delivery O2 Flow Rate FiO2 05/16/16 04:00 97.4 56 16 132/65 97 05/16/16 00:00 97.4 57 16 123/62 96 05/15/16 19:45 98.6 56 16 125/63 100 05/15/16 16:15 98.4 48 16 143/69 98 05/15/16 12:00 98.5 52 18 113/61 98 05/15/16 10:33 16 05/15/16 08:00 97.5 50 18 157/70 99 I/O 05/15/16 05/15/16 05/15/16 05/16/16 05/16/16 05/16/16 07:00 15:00 23:00 07:00 15:00 23:00 Intake Total 220 ml 720 ml 480 ml 480 ml Balance 220 ml 720 ml 480 ml 480 ml Intake Oral 220 ml 720 ml 480 ml 480 ml # Voids 2 3 1 1 # Bowel Movements 0 0 2 Result Diagram: 05/14/16 0405 05/15/16 0624 Imaging Last 24 hours Impressions Chest X-Ray 05/13/16 1024 Signed Impressions: Service Date/Time: Friday, May 13, 2016 11:35 - CONCLUSION: 1. No acute infiltrate. 2. Probable fracture of the proximal right humerus-age indeterminate. Bao Lopez MD Objective Remarks RUE: pain to touch of proximal humerus. +sling/swathe. NVI. We'll extension and flexion of all fingers Assessment & Plan Assessment and Plan 1) Right proximal humerus fracture - nonop -NWB -maintain sling/swathe at all times -CM to help arrange transportation back home to [place] -out of bed with therapy Discharged to home when bed available f/u outpatient at home with orthopedics in 10 days NOAH ROLLE PA-C May 16, 2016 07:28
[2016-05-16 08:00] VITALS: BP 112/64; PULSE 52; RESP 18; TEMP 97.3; O2SAT 94
[2016-05-16] MEDS: HEPARIN SODIUM - SQ 10,000 UNITS/ML VIAL SQ SCH ×2 (08:19→19:55)
--- NOTE | 2016-05-16 10:30 | HHI.DCPOC ---
Discharge Care Plan Diagnosis: (1) Fall (2) Acute kidney injury (3) Right humeral fracture Your Health Problems Are: Difficulty with ADL Exercise Tolerance Goals to Promote Your Health * To prevent worsening of your condition and complications * To maintain your health at the optimal level Directions to Meet Your Goals Take your medications as prescribed Follow your dietary instruction Follow activity as directed Keep your appointments as scheduled Take your immunizations and boosters as scheduled If your symptoms worsen call your PCP, if no PCP go to Urgent Care Center or Emergency Room Smoking is Dangerous to Your Health. Avoid second hand smoke Call the 24-hour hour crisis hotline for domestic abuse at Partha Cerda MD May 16, 2016 10:30
[2016-05-16 12:00] VITALS: BP 108/60; PULSE 55; RESP 17; TEMP 97.1; O2SAT 96
[2016-05-16 16:00] VITALS: BP 141/67; PULSE 61; RESP 18; TEMP 96.8; O2SAT 98
--- NOTE | 2016-05-16 18:20 | HHI.PR ---
Subjective Remarks Follow-up kidney disease. Patient not aware of underlying kidney disease. No voiding issues. Discussed with RN Objective Vitals Vital Signs Date Time Temp Pulse Resp B/P Pulse Ox O2 Delivery O2 Flow Rate FiO2 05/16/16 16:00 96.8 61 18 141/67 98 05/16/16 12:00 97.1 55 17 108/60 96 05/16/16 08:00 97.3 52 18 112/64 94 05/16/16 04:00 97.4 56 16 132/65 97 05/16/16 00:00 97.4 57 16 123/62 96 05/15/16 19:45 98.6 56 16 125/63 100 I/O 05/15/16 05/15/16 05/15/16 05/16/16 05/16/16 05/16/16 07:00 15:00 23:00 07:00 15:00 23:00 Intake Total 220 ml 720 ml 480 ml 480 ml 600 ml Balance 220 ml 720 ml 480 ml 480 ml 600 ml Intake Oral 220 ml 720 ml 480 ml 480 ml 600 ml # Voids 2 3 1 1 3 # Bowel Movements 0 0 2 1 Result Diagram: 05/14/16 0405 05/15/16 0624 Imaging Last Impressions Chest X-Ray 05/13/16 1024 Signed Impressions: Service Date/Time: Friday, May 13, 2016 11:35 - CONCLUSION: 1. No acute infiltrate. 2. Probable fracture of the proximal right humerus-age indeterminate. Bao Lopez MD Shoulder X-Ray 05/13/16 0000 Signed Impressions: Service Date/Time: Friday, May 13, 2016 11:24 - CONCLUSION: Comminuted fracture through the anatomic neck of the proximal right humerus. Bao Lopez MD Head CT 05/13/16 0000 Signed Impressions: Service Date/Time: Friday, May 13, 2016 11:00 - CONCLUSION: 1. No acute infarct, acute hemorrhage, mass effect or extraaxial fluid collections. 2. 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 3. Ischemic changes within the left external capsule. 4. Air fluids within the maxillary sinuses and sphenoid sinuses consistent with acute sinusitis with mucosal thickening of the ethmoid air cells bilaterally also. Alex Hahn MD Elbow X-Ray 05/13/16 0000 Signed Impressions: Service Date/Time: Friday, May 13, 2016 11:38 - CONCLUSION: No fracture identified on the 2 view series provided. Bao Lopez MD Carotid Artery Ultrasound 05/13/16 0000 Signed Impressions: Service Date/Time: Friday, May 13, 2016 13:00 - CONCLUSION: Minimal plaque with no evidence of stenosis. William Mcallister MD Objective Remarks GENERAL: This is a well-nourished, well-developed patient, in no apparent distress. CARDIOVASCULAR: Regular rate and regular rhythm without murmurs, gallops, or rubs. RESPIRATORY: Clear to auscultation. Breath sounds equal bilaterally. No wheezes , rales, or rhonchi. GASTROINTESTINAL: Abdomen soft, non-tender, nondistended. Normal, active bowel sounds MUSCULOSKELETAL: right upper extremity in sling. NEURO: Alert & Oriented x4 to person, place, time, situation. Moves all ext x4 Procedures none A/P Problem List: (1) Right humeral fracture ICD Code: S42.301A Status: Acute (2) Fall ICD Code: W19.XXXA Status: Acute (3) Acute kidney injury ICD Code: N17.9 Status: Acute Assessment and Plan - right proximal humerus fracture after a fall continue with pain control- consulted ortho who recommended non-op treatment with f/u as outpatient. NWB right upper extremity. -hypertension;BP fairly controlled- hold BP meds for now- will monitor -acute kidney injury versus chronic, no previous labs for comparison/ dehydration; improved after IV hydration. Avoid nephrotoxins -Mild anemia secondary to dilution. Monitor -DVT prophylaxis with subq heparin Discharge Planning Stable for discharge. Family working with case management to place patient in [place]. Per case management, SNF bed available Thursday Problem Qualifiers (1) Right humeral fracture: Qualified Code: S42.211A - Closed displaced fracture of surgical neck of right humerus, unspecified fracture morphology, initial encounter Partha Cerda MD May 16, 2016 18:20
[2016-05-16 20:50] VITALS: BP 118/58; PULSE 63; RESP 17; TEMP 97.7; O2SAT 98
[2016-05-17] VITALS (7 sets, daily range): BP systolic 106–154; BP diastolic 57–83; PULSE 55–67; RESP 17–18; TEMP 96.5–97.7; O2SAT 92–99
[2016-05-17] MEDS: ACETAMINOPHEN/HYDROcodone 325 MG/5 MG TAB PO PRN ×4 (02:33→22:37)
[2016-05-17] MEDS: LEVOTHYROXINE SODIUM 100 MCG TAB PO SCH (05:23)
[2016-05-17 07:12] LABS: AUTOMATED NEUTROPHIL # 3.6 TH/MM3 (1.8-7.7); BASOPHIL % 0.7 % (0.0-2.0); EOSINOPHIL # 0.3 TH/MM3 (0-0.4); EOSINOPHIL % 4.6 % (0.0-4.0); HEMATOCRIT 30.8 % (35.0-46.0); HEMO FLAGS DIFF FINAL; LYMPH % 24.5 % (9.0-44.0); LYMPHOCYTE # 1.5 TH/MM3 (1.0-4.8); MEAN CELL VOLUME 88.5 FL (80.0-100.0); MEAN CORPUSCULAR HEMOGLOBIN 30.1 PG (27.0-34.0); MONO % 11.2 % (0.0-8.0); PLATELET COUNT 243 TH/MM3 (150-450); RED BLOOD COUNT 3.48 MIL/MM3 (4.00-5.30); RED CELL DISTRIBUTION WIDTH 14.3 % (11.6-17.2); WHITE BLOOD COUNT 6.1 TH/MM3 (4.0-11.0)
[2016-05-17 07:38] LABS: BICARBONATE 29.6 MEQ/L (21.0-32.0); POTASSIUM 4.2 MEQ/L (3.5-5.1)
[2016-05-17] MEDS: ATENOLOL 25 MG TAB PO SCH (08:30)
[2016-05-17] MEDS: HEPARIN SODIUM - SQ 10,000 UNITS/ML VIAL SQ SCH ×2 (08:31→22:39)
[2016-05-17] MEDS ORDERED: ATENOLOL 100 MG TAB PO SCH (09:00)
--- NOTE | 2016-05-17 09:57 | HHI.PR ---
Subjective Remarks Follow-up right humeral fracture. She is doing okay but participating with physical therapy. Awaiting placement on Thursday. Discussed with RN and physical therapy Objective Vitals Vital Signs Date Time Temp Pulse Resp B/P Pulse Ox O2 Delivery O2 Flow Rate FiO2 05/17/16 08:00 97.0 60 18 148/83 96 05/17/16 04:35 97.5 58 18 154/69 92 05/17/16 00:40 97.0 59 17 131/70 98 05/16/16 20:50 97.7 63 17 118/58 98 05/16/16 16:00 96.8 61 18 141/67 98 05/16/16 12:00 97.1 55 17 108/60 96 I/O 05/16/16 05/16/16 05/16/16 05/17/16 05/17/16 05/17/16 07:00 15:00 23:00 07:00 15:00 23:00 Intake Total 480 ml 840 ml 240 ml Balance 480 ml 840 ml 240 ml Intake Oral 480 ml 840 ml 240 ml # Voids 1 5 1 # Bowel Movements 1 0 Result Diagram: 05/17/1615 05/17/16 0615 Objective Remarks GENERAL: This is a well-nourished, well-developed patient, in no apparent distress. CARDIOVASCULAR: Regular rate and regular rhythm without murmurs, gallops, or rubs. RESPIRATORY: Clear to auscultation. Breath sounds equal bilaterally. No wheezes , rales, or rhonchi. GASTROINTESTINAL: Abdomen soft, non-tender, nondistended. Normal, active bowel sounds MUSCULOSKELETAL: right upper extremity in sling. NEURO: Alert & Oriented x4 to person, place, time, situation. Moves all ext x4 Procedures none A/P Problem List: (1) Right humeral fracture ICD Code: S42.301A Status: Acute (2) Fall ICD Code: W19.XXXA Status: Acute (3) Acute kidney injury ICD Code: N17.9 Status: Acute Assessment and Plan - right proximal humerus fracture after a fall continue with pain control- consulted ortho who recommended non-op treatment with f/u as outpatient. NWB right upper extremity. Continue physical therapy -hypertension;BP fairly controlled- hold BP meds for now- will monitor -acute kidney injury versus chronic, no previous labs for comparison/ dehydration; improved after IV hydration. Avoid nephrotoxins -Mild anemia secondary to dilution. Stable. Monitor -DVT prophylaxis with subq heparin Discharge Planning Stable for discharge. Family working with case management to place patient in [place]. Per case management, SNF bed available Thursday Problem Qualifiers (1) Right humeral fracture: Qualified Code: S42.211A - Closed displaced fracture of surgical neck of right humerus, unspecified fracture morphology, initial encounter Partha Cerda MD May 17, 2016 09:57
[2016-05-17] MEDS: HYDROmorphone HCL PF 1 MG/ML VIAL IV PUSH PRN (23:38)
[2016-05-18 04:10] VITALS: BP 134/66; PULSE 59; RESP 16; TEMP 96.7; O2SAT 96
[2016-05-18] MEDS: LEVOTHYROXINE SODIUM 100 MCG TAB PO SCH (06:00)
[2016-05-18 08:00] VITALS: BP 181/84; PULSE 57; RESP 18; TEMP 96.3; O2SAT 99
[2016-05-18] MEDS: ATENOLOL 25 MG TAB PO SCH (09:05)
[2016-05-18] MEDS: HEPARIN SODIUM - SQ 10,000 UNITS/ML VIAL SQ SCH ×2 (09:06→22:41)
[2016-05-18] MEDS: ACETAMINOPHEN/HYDROcodone 325 MG/5 MG TAB PO PRN ×4 (09:08→22:41)
--- NOTE | 2016-05-18 11:34 | HHI.PR ---
Subjective Remarks Follow-up right upper extremity injury. She is doing well awaiting her flight tomorrow. Discussed with RN and physical therapy Objective Vitals Vital Signs Date Time Temp Pulse Resp B/P Pulse Ox O2 Delivery O2 Flow Rate FiO2 05/18/16 08:00 96.3 57 18 181/84 99 05/18/16 04:10 96.7 59 16 134/66 96 05/17/16 23:45 96.5 61 17 116/57 96 05/17/16 20:50 97.7 67 17 106/59 94 05/17/16 16:00 96.8 55 18 131/68 99 05/17/16 12:00 97.1 55 18 109/63 96 I/O 05/17/16 05/17/16 05/17/16 05/18/16 05/18/16 05/18/16 07:00 15:00 23:00 07:00 15:00 23:00 Intake Total 240 ml 720 ml 240 ml 240 ml Balance 240 ml 720 ml 240 ml 240 ml Intake Oral 240 ml 720 ml 240 ml 240 ml # Voids 1 3 2 1 # Bowel Movements 0 0 0 0 Result Diagram: 05/17/16 0615 05/17/16 0615 Imaging Last Impressions Chest X-Ray 05/13/16 1024 Signed Impressions: Service Date/Time: Friday, May 13, 2016 11:35 - CONCLUSION: 1. No acute infiltrate. 2. Probable fracture of the proximal right humerus-age indeterminate. Bao Lopez MD Shoulder X-Ray 05/13/16 0000 Signed Impressions: Service Date/Time: Friday, May 13, 2016 11:24 - CONCLUSION: Comminuted fracture through the anatomic neck of the proximal right humerus. Bao Lopez MD Head CT 05/13/16 0000 Signed Impressions: Service Date/Time: Friday, May 13, 2016 11:00 - CONCLUSION: 1. No acute infarct, acute hemorrhage, mass effect or extraaxial fluid collections. 2. 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 3. Ischemic changes within the left external capsule. 4. Air fluids within the maxillary sinuses and sphenoid sinuses consistent with acute sinusitis with mucosal thickening of the ethmoid air cells bilaterally also. Alex Hahn MD Elbow X-Ray 05/13/16 0000 Signed Impressions: Service Date/Time: Friday, May 13, 2016 11:38 - CONCLUSION: No fracture identified on the 2 view series provided. Bao Lopez MD Carotid Artery Ultrasound 05/13/16 0000 Signed Impressions: Service Date/Time: Friday, May 13, 2016 13:00 - CONCLUSION: Minimal plaque with no evidence of stenosis. William Mcallister MD Objective Remarks GENERAL: This is a well-nourished, well-developed patient, in no apparent distress. CARDIOVASCULAR: Regular rate and regular rhythm without murmurs, gallops, or rubs. RESPIRATORY: Clear to auscultation. Breath sounds equal bilaterally. No wheezes , rales, or rhonchi. GASTROINTESTINAL: Abdomen soft, non-tender, nondistended. Normal, active bowel sounds MUSCULOSKELETAL: right upper extremity in sling. NEURO: Alert & Oriented x4 to person, place, time, situation. Nonfocal Procedures none A/P Problem List: (1) Right humeral fracture ICD Code: S42.301A Status: Acute (2) Fall ICD Code: W19.XXXA Status: Acute (3) Acute kidney injury ICD Code: N17.9 Status: Acute Assessment and Plan - right proximal humerus fracture after a fall continue with pain control- consulted ortho who recommended non-op treatment with f/u as outpatient. NWB right upper extremity. Continue physical therapy -hypertension; uncontrolled. Unable to increase beta otto secondary to bradycardia. Restart Norvasc. Continue to monitor -acute kidney injury versus chronic, no previous labs for comparison/ dehydration; improved after IV hydration. Avoid nephrotoxins -Mild anemia secondary to dilution. Stable. Monitor -DVT prophylaxis with subq heparin Discharge Planning Stable for discharge. Family working with case management to place patient in [place]. Per case management, SNF bed available Thursday. Patient has a flight tomorrow morning Problem Qualifiers (1) Right humeral fracture: Qualified Code: S42.211A - Closed displaced fracture of surgical neck of right humerus, unspecified fracture morphology, initial encounter Partha Cerda MD May 18, 2016 11:34
--- NOTE | 2016-05-18 11:36 | HHI.DS ---
Discharge Summary Admission Date May 13, 2016 at 12:20 Discharge Date: May 19, 2016 Admitting Diagnosis Right proximal humerus fx, PRABHJOT, dehydration (1) Right humeral fracture ICD Code: S42.301A Diagnosis: Principal (2) Fall ICD Code: W19.XXXA Diagnosis: Principal (3) Acute kidney injury ICD Code: N17.9 Diagnosis: Principal Procedures none Brief History - From Admission patient is a 81 y/o female with history of hypertension who presented to ER with right shoulder pain after a fall last night. she says that while she was on a cruise she started to have flu-like symptoms for which she was given antibiotics and cough medicine. she says that she hasn't been eating or drinking as much recently and she ' feels dehydrated'. she says that she's been dizzy over the past couple of days. she fell three times since yesterday. she denies any chest pain, sob. pain to the right shoulder was moderate in intensity. CBC/BMP: 05/17/16 0615 05/17/16 0615 Significant Findings Laboratory Tests Test 05/17/16 06:15 Red Blood Count 3.48 MIL/MM3 (4.00-5.30) Hemoglobin 10.5 GM/DL (11.6-15.3) Hematocrit 30.8 % (35.0-46.0) Monocytes (%) (Auto) 11.2 % (0.0-8.0) Eosinophils (%) (Auto) 4.6 % (0.0-4.0) Blood Urea Nitrogen 19 MG/DL (7-18) Creatinine 1.12 MG/DL (0.50-1.00) Estimat Glomerular Filtration 47 ML/MIN (>89) Rate Calcium Level 8.4 MG/DL (8.5-10.1) Imaging Last Impressions Chest X-Ray 05/13/16 1024 Signed Impressions: Service Date/Time: Friday, May 13, 2016 11:35 - CONCLUSION: 1. No acute infiltrate. 2. Probable fracture of the proximal right humerus-age indeterminate. Bao Lopez MD Shoulder X-Ray 05/13/16 Signed Impressions: Service Date/Time: Friday, May 13, 2016 11:24 - CONCLUSION: Comminuted fracture through the anatomic neck of the proximal right humerus. Bao Lopez MD Head CT 05/13/16 Signed Impressions: Service Date/Time: Friday, May 13, 2016 11:00 - CONCLUSION: 1. No acute infarct, acute hemorrhage, mass effect or extraaxial fluid collections. 2. 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 3. Ischemic changes within the left external capsule. 4. Air fluids within the maxillary sinuses and sphenoid sinuses consistent with acute sinusitis with mucosal thickening of the ethmoid air cells bilaterally also. Alex Hahn MD Elbow X-Ray 05/13/16 Signed Impressions: Service Date/Time: Friday, May 13, 2016 11:38 - CONCLUSION: No fracture identified on the 2 view series provided. Bao Lopez MD Carotid Artery Ultrasound 05/13/16 Signed Impressions: Service Date/Time: Friday, May 13, 2016 13:00 - CONCLUSION: Minimal plaque with no evidence of stenosis. William Mcallister MD PE at Discharge GENERAL: This is a well-nourished, well-developed patient, in no apparent distress. CARDIOVASCULAR: Regular rate and regular rhythm without murmurs, gallops, or rubs. RESPIRATORY: Clear to auscultation. Breath sounds equal bilaterally. No wheezes , rales, or rhonchi. GASTROINTESTINAL: Abdomen soft, non-tender, nondistended. Normal, active bowel sounds MUSCULOSKELETAL: right upper extremity in sling. NEURO: Alert & Oriented x4 to person, place, time, situation. Nonfocal Hospital Course - right proximal humerus fracture after a fall continue with pain control- consulted ortho who recommended non-op treatment with f/u as outpatient. NWB right upper extremity. Continue physical therapy -hypertension; uncontrolled. Unable to increase beta otto secondary to bradycardia. Restart Norvasc. Continue to monitor -acute kidney injury versus chronic, no previous labs for comparison/ dehydration; improved after IV hydration. Avoid nephrotoxins -Mild anemia secondary to dilution. Stable. Monitor -DVT prophylaxis with subq heparin Pt Condition on Discharge: Stable Discharge Disposition: Discharge to SNF Discharge Time: > 30 minutes Discharge Instructions DIET: Follow Instructions for: Heart Healthy Diet Activities you can perform: Regular-No Restrictions Activities to Avoid: Driving Other Activity Instructions: HARJEET HILLIARD Follow up Referrals: Orthopedics - 2 Weeks @ [facility] with William Britt MD PCP Follow-up - 1 Week New Medications: Atenolol (Atenolol) 25 Mg Tab 25 MG PO DAILY Blood Pressure Management #30 Ref 0 TAB Hydrocodone-Acetaminophen ([place]) 5-325 mg Tab 1 TAB PO Q6H PRN PAIN #20 Ref 0 TAB Continued Medications: Amlodipine (Amlodipine) 2.5 Mg Tab 2.5 MG PO DAILY Blood Pressure Management #30 Ref 0 TAB Calcium Carbonate (Caltrate 600) 1,500 Mg Tab 1 TAB PO DAILY Calcium Supplement Ref 0 TAB Levothyroxine (Synthroid) 100 Mcg Tab 100 MCG PO DAILY Thyroid #30 Ref 0 TAB Discontinued Medications: Atenolol (Atenolol) 100 Mg Tab 100 MG PO DAILY Blood Pressure Management #30 Ref 0 TAB Furosemide (Furosemide) 20 Mg Tab 20 MG PO DAILY #30 Ref 0 TAB Zolpidem (Zolpidem) 1.75 Mg Sub 1.75 MG SL HS PRN INSOMNIA Ref 0 TAB.SL Partha Cerda MD May 18, 2016 11:35
[2016-05-18] MEDS: amLODIPine BESYLATE 5 MG TAB PO SCH (11:45)
[2016-05-18] MEDS ORDERED: PILL SPLITTER OTHER PRN (11:45)
[2016-05-18 12:00] VITALS: BP 114/59; PULSE 58; RESP 18; TEMP 97.2; O2SAT 96
[2016-05-18 16:00] VITALS: BP 115/67; PULSE 62; RESP 18; TEMP 97.7; O2SAT 95
[2016-05-18 19:30] VITALS: BP 107/59; PULSE 62; RESP 16; TEMP 97.9; O2SAT 96
[2016-05-19 00:10] VITALS: BP 142/69; PULSE 57; RESP 15; TEMP 97.5; O2SAT 97
[2016-05-19] MEDS: LEVOTHYROXINE SODIUM 100 MCG TAB PO SCH (06:00)
--- NOTE | 2016-05-19 06:43 | PD.ORT.PN ---
Subjective Subjective Remarks Pain controlled. Arranging for transport back home today Objective Vitals Vital Signs Date Time Temp Pulse Resp B/P Pulse Ox O2 Delivery O2 Flow Rate FiO2 05/19/16 00:10 97.5 57 15 142/69 97 05/18/16 19:30 97.9 62 16 107/59 96 05/18/16 16:00 97.7 62 18 115/67 95 05/18/16 12:00 97.2 58 18 114/59 96 05/18/16 08:00 96.3 57 18 181/84 99 I/O 05/18/16 05/18/16 05/18/16 05/19/16 05/19/16 05/19/16 07:00 15:00 23:00 07:00 15:00 23:00 Intake Total 240 ml 1920 ml 720 ml 480 ml Balance 240 ml 1920 ml 720 ml 480 ml Intake Oral 240 ml 1920 ml 720 ml 480 ml # Voids 1 6 2 3 # Bowel Movements 0 2 0 0 Result Diagram: 05/17/16 0615 05/17/16 0615 Imaging Last 24 hours Impressions Chest X-Ray 05/13/16 1024 Signed Impressions: Service Date/Time: Friday, May 13, 2016 11:35 - CONCLUSION: 1. No acute infiltrate. 2. Probable fracture of the proximal right humerus-age indeterminate. Bao Lopez MD Objective Remarks RUE: pain to touch of proximal humerus. +sling/swathe. NVI. We'll extension and flexion of all fingers Assessment & Plan Assessment and Plan 1) Right proximal humerus fracture - nonop -NWB -maintain sling/swathe at all times -CM to help arrange transportation back home to [place] -out of bed with therapy Discharged to home when bed available f/u outpatient at home with orthopedics in 7 days NOAH ROLLE PA-C May 19, 2016 06:43
[2016-05-19 08:00] VITALS: BP 153/71; PULSE 66; RESP 16; TEMP 95.8; O2SAT 96
[2016-05-19] MEDS: ATENOLOL 25 MG TAB PO SCH (08:55)
[2016-05-19] MEDS: amLODIPine BESYLATE 5 MG TAB PO SCH (08:55)
[2016-05-19] MEDS: ACETAMINOPHEN/HYDROcodone 325 MG/5 MG TAB PO PRN (08:57)
[2016-05-19] MEDS: HEPARIN SODIUM - SQ 10,000 UNITS/ML VIAL SQ SCH (08:58)
== END 2016-05-19 10:26 | DRG 563 ==
LOC: NEPE 09:13 → NEDA 12:20 → NEDH 16:36 → NEDA 19:30 → NEDH 19:53 → N06B 05-14 22:43
PROVIDERS: ADMIT Hospitalist; ATTEND Hospitalist
DX: S42.291A Other displaced fracture of upper end of right humerus, initial encounter for closed fracture (principal); N17.9 Acute kidney failure, unspecified; E86.0 Dehydration; I10 Essential (primary) hypertension; W01.190A Fall on same level from slipping, tripping and stumbling with subsequent striking against furniture, initial encounter; Y92.59 Other trade areas as the place of occurrence of the external cause; K59.00 Constipation, unspecified; Z96.659 Presence of unspecified artificial knee joint
CPT/HCPCS: 70450; 71010; 73030; 73070; 80048; 81001; 82550; 82552; 83735; 84484; 85025; 85730; 93005; 93880; J1170; J1644; J2405; J7030; P9612